=== PATIENT | male | born 1950 | race Caucasian/White ===

== ENCOUNTER 2016-09-15 10:06 | Outpatient (CLI) | payer MEDICARE | END 2016-09-15 10:07 | disposition home or self-care (01) | DX: E78.5 Hyperlipidemia, unspecified (principal); Z12.5 Encounter for screening for malignant neoplasm of prostate; G56.90 Unspecified mononeuropathy of unspecified upper limb; L91.8 Other hypertrophic disorders of the skin; Z12.11 Encounter for screening for malignant neoplasm of colon | CPT/HCPCS: 36415; 80053; G0103 ==

== ENCOUNTER 2016-09-25 08:42 | Outpatient (CLI) | payer MEDICARE ==
[2016-09-25] MEDS ORDERED: GADOBUTROL 7.5 MMOL/7.5 ML VIAL IVP ONE (09:46)
== END 2016-09-25 08:43 | disposition home or self-care (01) ==
DX: M47.22 Other spondylosis with radiculopathy, cervical region (principal); M62.838 Other muscle spasm; G56.90 Unspecified mononeuropathy of unspecified upper limb
CPT/HCPCS: 72156; A9585

== ENCOUNTER 2016-10-19 10:05 | Day surgery (SDC) | payer MEDICARE ==
[2016-10-19] MEDS ORDERED: LACTATED RINGERS 1,000 ML IV ONE ×2 (11:18→12:57)
[2016-10-19] MEDS ORDERED: MIDAZOLAM 2 MG/2 ML VIAL IVP ONE (12:35)
[2016-10-19] MEDS ORDERED: fentaNYL 250 MCG/5 ML VIAL IVP ONE (12:35)
== END 2016-10-19 10:06 | disposition home or self-care (01) ==
PROC: 0DJD8ZZ Inspection of Lower Intestinal Tract, Via Natural or Artificial Opening Endoscopic (ICD-10-PCS; principal; 2016-10-19 11:15)
DX: Z12.11 Encounter for screening for malignant neoplasm of colon (principal); K64.8 Other hemorrhoids; Z86.010 Personal history of colon polyps; Z87.891 Personal history of nicotine dependence; K40.90 Unilateral inguinal hernia, without obstruction or gangrene, not specified as recurrent
CPT/HCPCS: 87640; G0105; J3010; J7120

== ENCOUNTER 2016-10-27 07:32 | Day surgery (SDC) | payer MEDICARE ==
[~2016-10-27 07:32] MED LIST: ceFAZolin 2 GM/50 ML 50 ML IV ONE
[2016-10-27] MEDS ORDERED: LACTATED RINGERS 1,000 ML IV ONE (08:00)
[2016-10-27] MEDS ORDERED: LIDOCAINE-MPF 2% 5 ML VIAL IM ONE (09:00)
[2016-10-27] MEDS ORDERED: DEXAMETHASONE 4 MG/ML VIAL IVP ONE (09:00)
[2016-10-27] MEDS ORDERED: fentaNYL 100 MCG/2 ML VIAL IVP ONE (09:00)
[2016-10-27] MEDS ORDERED: PROPOFOL 200 MG/20 ML VIAL IVP ONE (09:00)
[2016-10-27] MEDS ORDERED: MIDAZOLAM 2 MG/2 ML VIAL IVP ONE (09:00)
[2016-10-27] MEDS ORDERED: GLYCOPYRROLATE 1 MG/5 ML VIAL IVP ONE (09:00)
[2016-10-27] MEDS ORDERED: ONDANSETRON 4 MG/2 ML VIAL IVP ONE (09:00)
[2016-10-27] MEDS ORDERED: BUPIVACAINE 0.5% PF 30 ML VIAL SUBQ ONE ×2 (09:02→10:12)
[2016-10-27] MEDS ORDERED: KETOROLAC 15 MG/ML VIAL ONE (10:33)
== END 2016-10-27 07:33 | disposition home or self-care (01) ==
PROC: 0YU60JZ Supplement Left Inguinal Region with Synthetic Substitute, Open Approach (ICD-10-PCS; principal; 2016-10-27 08:30)
DX: K40.90 Unilateral inguinal hernia, without obstruction or gangrene, not specified as recurrent (principal); F41.8 Other specified anxiety disorders; Z87.891 Personal history of nicotine dependence
CPT/HCPCS: 49505; C1781; J0690; J7120

== ENCOUNTER 2019-01-24 09:52 | Outpatient (CLI) | payer MEDICARE, OTHER ==
[2019-01-24 12:50] LABS: BASOPHILS # (AUTO) 0.1 10^3/uL (0.0-0.1); BASOPHILS % (AUTO) 1.1 %; EOSINOPHILS # (AUTO) 0.2 10^3/uL (0.0-0.7); EOSINOPHILS % (AUTO) 3.6 %; LYMPHOCYTES # (AUTO) 1.7 10^3/uL (1.5-3.5); LYMPHOCYTES % (AUTO) 31.9 %; MEAN CORPUSCULAR HEMOGLOBIN 30.4 pg (27.0-31.0); MEAN CORPUSCULAR HGB CONC 32.7 g/dL (32.0-36.0); MEAN CORPUSCULAR VOLUME 92.8 fL (80.0-94.0); MEAN PLATELET VOLUME 8.7 fL (7.4-11.4); MONOCYTES # (AUTO) 0.4 10^3/uL (0.0-1.0); MONOCYTES % (AUTO) 7.3 %; NEUTROPHILS % (AUTO) 56.1 %; PLT - PLATELET COUNT 202 10^3/uL (130-450); RED BLOOD COUNT 4.62 10^6/uL (4.70-6.10); RED CELL DISTRIBUTION WIDTH 13.8 % (12.0-15.0); WHITE BLOOD COUNT 5.4 x10^3/uL (4.8-10.8)
[2019-01-24 13:23] LABS: ALBUMIN 3.9 g/dL (3.2-5.5); ALBUMIN/GLOBULIN RATIO 1.5 (1.0-2.2); ALKALINE PHOSPHATASE 35 IU/L (42-121); ALT ALANINE AMINOTRANSFERASE 20 IU/L (10-60); AST ASPARTATE AMINOTRANSFERASE 21 IU/L (10-42); BILIRUBIN,TOTAL 0.8 mg/dL (0.2-1.0); BUN - BLOOD UREA NITROGEN 22 mg/dL (6-20); CARBON DIOXIDE - CO2 27 mmol/L (21-32); CHLORIDE 105 mmol/L (101-111); CHOLESTEROL 166 mg/dL; CREATININE 0.8 mg/dL (0.6-1.2); GFR - MDRD 96 (>89); GLUCOSE 110 mg/dL (70-100); HDL CHOLESTEROL 55 mg/dL; SODIUM 139 mmol/L (135-145); TOTAL PROTEIN 6.5 g/dL (6.7-8.2)
[2019-01-24 13:48] LABS: LDL CHOLESTEROL,DIRECT 104 mg/dL; LDLD/HDL RATIO 1.9 (<3.6)
== END 2019-01-24 23:59 | disposition home or self-care (01) ==
LOC: LAB.WCP 09:52
PROVIDERS: ATTEND Family Medicine
DX: E78.5 Hyperlipidemia, unspecified (principal); Z12.5 Encounter for screening for malignant neoplasm of prostate
CPT/HCPCS: 36415; 80053; 80061; 83721; 84153; 84443; 85025

== ENCOUNTER 2020-09-30 09:17 | Outpatient (CLI) | payer MEDICARE, OTHER ==
[2020-09-30 13:24] LABS: BASOPHILS % (AUTO) 0.7 %; EOSINOPHILS # (AUTO) 0.1 10^3/uL (0.0-0.7); EOSINOPHILS % (AUTO) 2.3 %; HGB - HEMOGLOBIN 14.9 g/dL (14.0-18.0); LYMPHOCYTES # (AUTO) 1.7 10^3/uL (1.5-3.5); LYMPHOCYTES % (AUTO) 29.5 %; MEAN CORPUSCULAR HEMOGLOBIN 30.8 pg (27.0-31.0); MEAN CORPUSCULAR VOLUME 96.3 fL (80.0-94.0); MEAN PLATELET VOLUME 10.1 fL (7.4-11.4); MONOCYTES # (AUTO) 0.4 10^3/uL (0.0-1.0); MONOCYTES % (AUTO) 7.6 %; NEUTROPHILS # (AUTO) 3.4 10^3/uL (1.5-6.6); NEUTROPHILS % (AUTO) 59.5 %; PLT - PLATELET COUNT 240 10^3/uL (130-450); RED BLOOD COUNT 4.83 10^6/uL (4.70-6.10); RED CELL DISTRIBUTION WIDTH 12.9 % (12.0-15.0); WHITE BLOOD COUNT 5.7 x10^3/uL (4.8-10.8)
[2020-09-30 13:38] LABS: ALBUMIN 4.3 g/dL (3.2-5.5); ALBUMIN/GLOBULIN RATIO 1.6 (1.0-2.2); ALKALINE PHOSPHATASE 44 IU/L (42-121); ALT ALANINE AMINOTRANSFERASE 16 IU/L (10-60); AST ASPARTATE AMINOTRANSFERASE 18 IU/L (10-42); BILIRUBIN,TOTAL 1.1 mg/dL (0.2-1.0); BUN - BLOOD UREA NITROGEN 24 mg/dL (6-20); CALCIUM 9.3 mg/dL (8.5-10.3); CARBON DIOXIDE - CO2 27 mmol/L (21-32); CHLORIDE 102 mmol/L (101-111); CHOL/HDL RATIO 3.1 (<5.0); CHOLESTEROL 221 mg/dL; CREATININE 0.7 mg/dL (0.6-1.2); GLUCOSE 100 mg/dL (70-100); HDL CHOLESTEROL 72 mg/dL; LDL CHOLESTEROL,CALCULATED 139 mg/dL; LDL/HDL RATIO 1.9 (<3.6); VLDL CHOLESTEROL 10 mg/dL
== END 2020-09-30 23:59 | disposition home or self-care (01) ==
LOC: LAB.WCP 09:17
PROVIDERS: ATTEND Internal Medicine
DX: Z13.9 Encounter for screening, unspecified (principal); E55.9 Vitamin D deficiency, unspecified
CPT/HCPCS: 80053; 80061; 82306; 83721; 84443; 85025

== ENCOUNTER 2021-05-13 11:28 | Outpatient (CLI) | payer MEDICARE ==
[2021-05-13 18:11] LABS: CALCIUM 9.1 mg/dL (8.5-10.3); CREATININE 0.9 mg/dL (0.6-1.2); MAGNESIUM 2.3 mg/dL (1.7-2.8)
[2021-05-13 18:37] LABS: THYROID STIMULATING HORMONE 1.01 uIU/mL (0.34-5.60)
[2021-05-13 18:41] LABS: FREE T4 (FREE THYROXINE) 1.1 ng/dL (0.58-1.64)
== END 2021-05-13 23:59 | disposition home or self-care (01) ==
LOC: LAB.WCP 11:28
PROVIDERS: ATTEND Internal Medicine
DX: R00.2 Palpitations (principal); E55.9 Vitamin D deficiency, unspecified
CPT/HCPCS: 36415; 80048; 82306; 83735; 84439; 84443

== ENCOUNTER 2021-11-03 18:32 | Emergency (ER) | payer MEDICARE ==
[2021-11-03 18:38] VITALS: BP 160/80
--- NOTE | 2021-11-03 19:07 | XRAY Report ---
PROCEDURE: Wrist 4 View LT INDICATIONS: Trauma to the left wrist. TECHNIQUE: 4 views of the wrist were acquired. COMPARISON: None FINDINGS: Bones: No fractures or dislocations. No suspicious bony lesions. Degenerative changes of the first carpometacarpal joint. Scaphoid view: No fracture Soft tissues: No suspicious soft tissue calcifications. IMPRESSION: No acute abnormality of the left wrist. Reviewed by: Drew Padilla on 11/03/2021 7:05 PM PST Approved by: Drew Padilla on 11/03/2021 7:05 PM [facility] Station ID: [id number] Bone Density - [id number]
--- NOTE | 2021-11-03 19:24 | ED Physician Documentation ---
History of Present Illness - Stated complaint Stated Complaint: LEFT WRIST INJURY - Chief complaint Chief Complaint: Trauma Ext - Additonal information Additional information: 71-year-old male presents emergency department for evaluation of acute left wrist pain. He was walking this afternoon slipped on black ice and fell on his outstretched hand. He felt a pop and crack in his hand and now has swelling the distal wrist. Neurovascularly intact. No history of previous injury. Review of Systems Constitutional: reports: Reviewed and negative Nose: reports: Reviewed and negative Throat: reports: Reviewed and negative Cardiac: reports: Reviewed and negative Respiratory: reports: Reviewed and negative GI: reports: Reviewed and negative : reports: Reviewed and negative Musculoskeletal: reports: Extremity pain (left wrist) PD PAST MEDICAL HISTORY - Past Medical History Past Medical History: Yes Cardiovascular: Arrhythmia Respiratory: None Neuro: None Endocrine/Autoimmune: None GI: GERD, Colon polyps : Benign prostate hypertrophy HEENT: Chronic vision loss Psych: None Musculoskeletal: Chronic back pain Derm: None - Past Surgical History Past Surgical History: Yes General: Colonoscopy Ortho: Arthroscopic surgery HEENT: Tonsil/Adenoidectomy - Present Medications Home Medications: Ambulatory Orders Medication Instructions Recorded Confirmed No Known Home Medications 11/03/21 11/03/21 - Allergies Allergies/Adverse Reactions: Allergies Allergy/AdvReac Type Severity Reaction Status Date / Time Penicillins Allergy Rash Verified 11/03/21 18:34 - Social History Does the pt smoke?: No Smoking Status: Never smoker Does the pt drink ETOH?: Yes Does the pt have substance abuse?: No - Immunizations Immunizations are current?: Yes PD ED PE EXPANDED - General General: Alert, No acute distress - Extremities Extremities: Left wrist (tenderness snuff box. normal flexion/extension. 2+ radial pulse. normal grasp) Results - Vitals Vitals: Vital Signs - 24 hr 11/03/21 18:34 Temperature 36.5 C Heart Rate 65 Respiratory 16 Rate Blood Pressure 160/80 H O2 Saturation 98 Oxygen O2 Source Room air - Rads (name of study) left wrist Radiology: Final report received (No acute abnormalities noted) PD MEDICAL DECISION MAKING - ED course Complexity details: reviewed results, considered differential, d/w patient ED course: 71-year-old male presents emergency department for evaluation of acute left wrist injury after a ground-level fall this afternoon when he slipped and black eyes. He has some mild swelling on the dorsum of the wrist and snuffbox tenderness. X-rays without acute findings but given snuffbox tenderness he is placed in a thumb spica splint. Advise follow-up with PCP or orthopedics in 1 week for repeat x-ray and evaluation. Recommend Tylenol ibuprofen for discomfort. Otherwise emergent return precautions discussed. Departure - Departure Disposition: Home, Self Care Clinical Impression: Acute pain of left wrist Condition: Stable Record reviewed to determine appropriate education?: Yes Comments: Daniel the x-ray of your wrist does not show an obvious broken bone but you have tenderness over an area of the wrist called the snuffbox. This can often be a sign of an occult scaphoid fracture. We have placed you in a temporary fiberglass splint. It should remain in place. In 7 to 10 days your wrist should be dequan-rayed. This can be done through your primary care provider. If your pain is improved and the x-ray shows no further signs of fracture then you can likely be without the splint. However the risk of having an untreated scaphoid fracture could result in loss of blood flow to this bone.
== END 2021-11-03 19:43 | disposition home or self-care (01) ==
LOC: ED 18:32
DX: M25.532 Pain in left wrist (principal)
CPT/HCPCS: 99282; 99283

== ENCOUNTER 2021-11-11 13:57 | Outpatient (CLI) | payer MEDICARE ==
--- NOTE | 2021-11-11 20:03 | XRAY Report ---
PROCEDURE: Wrist 3 View LT INDICATIONS: WRIST JOINT PAIN LEFT, PERSONAL HISTORY OF FALL TECHNIQUE: 3 views of the wrist were acquired. COMPARISON: 11/03/2021 FINDINGS: Bones: There is a probable nondisplaced longitudinal fracture of the distal radius extending to the a rticular surface. This was not visible on the previous study. No suspicious bony lesions. Soft tissues: No suspicious soft tissue calcifications. IMPRESSION: There is a likely very subtle nondisplaced longitudinal fracture of the distal radius extending to th e articular surface. Reviewed by: Joseph Durand MD on 11/11/2021 8:02 PM PST Approved by: Joseph Durand MD on 11/11/2021 8:02 PM PST Station ID: [id number]
== END 2021-11-11 13:58 | disposition home or self-care (01) ==
LOC: DI 13:57
PROVIDERS: ATTEND Nurse Practitioner Family
DX: M25.532 Pain in left wrist (principal); Z91.81 History of falling

== ENCOUNTER 2022-02-27 09:08 | Outpatient (CLI) | payer MEDICARE ==
[2022-02-27 09:27] LABS: BASOPHILS % (AUTO) 0.6 %; EOSINOPHILS # (AUTO) 0.2 10^3/uL (0.0-0.7); EOSINOPHILS % (AUTO) 3.2 %; HCT - HEMATOCRIT 47.3 % (42.0-52.0); HGB - HEMOGLOBIN 15.1 g/dL (14.0-18.0); LYMPHOCYTES # (AUTO) 1.9 10^3/uL (1.5-3.5); LYMPHOCYTES % (AUTO) 30.8 %; MEAN CORPUSCULAR HEMOGLOBIN 30.5 pg (27.0-31.0); MEAN CORPUSCULAR HGB CONC 31.9 g/dL (32.0-36.0); MEAN CORPUSCULAR VOLUME 95.6 fL (80.0-94.0); MEAN PLATELET VOLUME 9.5 fL (7.4-11.4); MONOCYTES # (AUTO) 0.5 10^3/uL (0.0-1.0); MONOCYTES % (AUTO) 7.8 %; NEUTROPHILS # (AUTO) 3.6 10^3/uL (1.5-6.6); NEUTROPHILS % (AUTO) 57.3 %; PLT - PLATELET COUNT 227 10^3/uL (130-450); RED BLOOD COUNT 4.95 10^6/uL (4.70-6.10); RED CELL DISTRIBUTION WIDTH 13.7 % (12.0-15.0); WHITE BLOOD COUNT 6.3 x10^3/uL (4.8-10.8)
[2022-02-27 09:41] LABS: ALBUMIN 4.4 g/dL (3.2-5.5); ALBUMIN/GLOBULIN RATIO 1.6 (1.0-2.2); ALKALINE PHOSPHATASE 45 IU/L (42-121); ALT ALANINE AMINOTRANSFERASE 21 IU/L (10-60); AST ASPARTATE AMINOTRANSFERASE 24 IU/L (10-42); BILIRUBIN,TOTAL 0.6 mg/dL (0.2-1.0); BUN - BLOOD UREA NITROGEN 20 mg/dL (6-20); CALCIUM 9.3 mg/dL (8.5-10.3); CARBON DIOXIDE - CO2 30 mmol/L (21-32); CHLORIDE 101 mmol/L (101-111); CHOL/HDL RATIO 3.4 (<5.0); CHOLESTEROL 226 mg/dL; GFR - MDRD 74 (>89); GLUCOSE 117 mg/dL (70-100); HDL CHOLESTEROL 67 mg/dL; POTASSIUM 4.1 mmol/L (3.5-5.0); SODIUM 141 mmol/L (135-145); TOTAL PROTEIN 7.1 g/dL (6.7-8.2); TRIGLYCERIDES 39 mg/dL
[2022-02-27 09:54] LABS: THYROID STIMULATING HORMONE 1.1 uIU/mL (0.34-5.60)
[2022-02-27 10:22] LABS: LUTEINIZING HORMONE 8.23 mIU/mL
[2022-02-27 11:59] LABS: ESTIMATED AVERAGE GLUCOSE 120 mg/dL (70-100); HEMOGLOBIN A1c% 5.8 % (4.27-6.07)
== END 2022-02-27 09:09 | disposition home or self-care (01) ==
LOC: LAB 09:08
PROVIDERS: ATTEND Internal Medicine
DX: E78.5 Hyperlipidemia, unspecified (principal); N52.9 Male erectile dysfunction, unspecified; R73.01 Impaired fasting glucose; N40.0 Benign prostatic hyperplasia without lower urinary tract symptoms; L65.9 Nonscarring hair loss, unspecified
CPT/HCPCS: 36415; 80053; 80061; 83002; 83036; 83721; 84153; 84403; 84443; 85025

== ENCOUNTER 2022-03-10 09:02 | Outpatient (CLI) | payer MEDICARE | END 2022-03-10 09:03 | disposition home or self-care (01) | LOC: LAB 09:02 | PROVIDERS: ATTEND Internal Medicine | DX: E78.5 Hyperlipidemia, unspecified (principal); E29.1 Testicular hypofunction | CPT/HCPCS: 36415; 83721; 84146 ==

== ENCOUNTER 2023-10-28 10:21 | Outpatient (CLI) | payer MEDICARE ==
[2023-10-28 10:34] LABS: BASOPHILS # (AUTO) 0.1 10^3/uL (0.0-0.1); BASOPHILS % (AUTO) 0.8 %; EOSINOPHILS # (AUTO) 0.2 10^3/uL (0.0-0.7); EOSINOPHILS % (AUTO) 3.7 %; HCT - HEMATOCRIT 46.6 % (42.0-52.0); HGB - HEMOGLOBIN 14.8 g/dL (14.0-18.0); LYMPHOCYTES # (AUTO) 1.9 10^3/uL (1.5-3.5); LYMPHOCYTES % (AUTO) 30.2 %; MEAN CORPUSCULAR HEMOGLOBIN 30.1 pg (27.0-31.0); MEAN CORPUSCULAR HGB CONC 31.8 g/dL (32.0-36.0); MEAN CORPUSCULAR VOLUME 94.7 fL (80.0-94.0); MEAN PLATELET VOLUME 9.6 fL (7.4-11.4); MONOCYTES # (AUTO) 0.5 10^3/uL (0.0-1.0); MONOCYTES % (AUTO) 8.3 %; NEUTROPHILS # (AUTO) 3.6 10^3/uL (1.5-6.6); NEUTROPHILS % (AUTO) 56.7 %; PLT - PLATELET COUNT 209 10^3/uL (130-450); RED BLOOD COUNT 4.92 10^6/uL (4.70-6.10); RED CELL DISTRIBUTION WIDTH 13.2 % (12.0-15.0); WHITE BLOOD COUNT 6.3 x10^3/uL (4.8-10.8)
[2023-10-28 10:53] LABS: ALBUMIN 4.5 g/dL (3.2-5.5); ALBUMIN/GLOBULIN RATIO 1.8 (1.0-2.2); ALKALINE PHOSPHATASE 55 IU/L (42-121); ALT ALANINE AMINOTRANSFERASE 17 IU/L (10-60); AST ASPARTATE AMINOTRANSFERASE 20 IU/L (10-42); BILIRUBIN,TOTAL 0.8 mg/dL (0.2-1.0); BUN - BLOOD UREA NITROGEN 21 mg/dL (6-20); CALCIUM 9.7 mg/dL (8.5-10.3); CARBON DIOXIDE - CO2 31 mmol/L (21-32); CHLORIDE 103 mmol/L (101-111); CHOLESTEROL 192 mg/dL; CREATININE 0.9 mg/dL (0.6-1.3); GFR - MDRD 83 (>89); GLUCOSE 106 mg/dL (74-104); HDL CHOLESTEROL 65 mg/dL; LDL CHOLESTEROL,CALCULATED 117 mg/dL; LDL CHOLESTEROL,DIRECT 112 mg/dL (75-193); LDL/HDL RATIO 1.8 (<3.6); POTASSIUM 4.1 mmol/L (3.5-4.5); SODIUM 139 mmol/L (135-145); TRIGLYCERIDES 49 mg/dL (48-352); VLDL CHOLESTEROL 10 mg/dL
[2023-10-28 11:15] LABS: ESTIMATED AVERAGE GLUCOSE 117 mg/dL (70-100); HEMOGLOBIN A1c% 5.7 % (4.27-6.07)
== END 2023-10-28 10:22 | disposition home or self-care (01) ==
LOC: LAB 10:21
PROVIDERS: ATTEND Internal Medicine
DX: E78.5 Hyperlipidemia, unspecified (principal); E55.9 Vitamin D deficiency, unspecified; R73.01 Impaired fasting glucose; N40.0 Benign prostatic hyperplasia without lower urinary tract symptoms; M50.10 Cervical disc disorder with radiculopathy, unspecified cervical region
CPT/HCPCS: 36415; 80053; 80061; 82306; 83036; 83721; 84153; 85025

== ENCOUNTER 2023-12-22 09:06 | Outpatient (CLI) | payer MEDICARE ==
--- NOTE | 2023-12-22 12:53 | XRAY Report ---
PROCEDURE: Hand 3+V RT INDICATIONS: RIGHT HAND CELLULITIS TECHNIQUE: 3 views of the hand(s) acquired. COMPARISON: No relevant comparisons at time of dictation. FINDINGS: Bones: No fractures or dislocations. No suspicious bony lesions. No bony erosion. Soft tissues: No suspicious soft tissue calcifications or masses. No radiopaque foreign body. Mild swelling of the second digit. IMPRESSION: No bony erosion or radiopaque foreign body. Mild swelling of the second digit. Reviewed by: Bhavin Lassiter MD on 12/22/2023 12:52 PM PDT Approved by: Bhavin Lassiter MD on 12/22/2023 12:52 PM PDT Station ID: [id number]
== END 2023-12-22 09:07 | disposition home or self-care (01) ==
LOC: DI 09:06
PROVIDERS: ATTEND Physician Assistant Medical
DX: L03.113 Cellulitis of right upper limb (principal)